=== PATIENT | male | born 1950 | race Two or more races ===

== ENCOUNTER 2024-02-27 08:12 | Emergency (ER) | payer OTHER ==
[~2024-02-27] VITALS: Ht 177.8 cm; Wt 86.2 kg
[2024-02-27 09:04] VITALS: BP 143/84; O2SAT 97
[2024-02-27] MEDS ORDERED: AMOX-CLAV 875-1 EAC1 PO (12:25)
[2024-02-27] MEDS ORDERED: DEXAMETHASONE SODIUM PHOSPHATE 4 MG/ML VIAL IM ONE (12:30)
[2024-02-27] MEDS ORDERED: DEXAMETHASONE SODIUM PHOSPHATE 4 MG/ML VIAL ONE (12:52)
[2024-02-27] MEDS ORDERED: TOBRAMYCIN-DEXAM5 ML OP (16:14)
== END 2024-02-27 14:08 | disposition home or self-care (01) ==
LOC: ER 08:56
DX: H66.91 Otitis media, unspecified, right ear (principal)